=== PATIENT | female | born 1985 | race African-American/Black ===

== ENCOUNTER 2017-04-17 11:01 | Emergency (ER) | payer OTHER ==
[~2017-04-17] VITALS: Ht 172.7 cm; Wt 53.3 kg
[2017-04-17 11:09] VITALS: BP 142/99
[2017-04-17] MEDS ORDERED: NAPR250T45 PO (11:14)
[2017-04-17] MEDS ORDERED: BACT800T5 PO (12:35)
[2017-04-17] MEDS ORDERED: ACET30TAB PO (12:57)
== END 2017-04-17 12:59 | disposition home or self-care (01) ==
LOC: M ED 11:01
DX: N75.0 Cyst of Bartholin's gland (principal); Z91.018 Allergy to other foods; Z79.899 Other long term (current) drug therapy; Z87.42 Personal history of other diseases of the female genital tract

== ENCOUNTER 2017-04-18 20:55 | Emergency (ER) | payer OTHER ==
[~2017-04-18 20:55] MED LIST: ACET30TAB PO; BACT800T5 PO; NAPR250T45 PO
[2017-04-19] MEDS ORDERED: KETOROLAC 30 MG/ML VIAL (J1885) IV ONE (00:45)
[2017-04-19] MEDS ORDERED: methylPREDNISolone INJ 125 MG/2 ML VIAL (J2930) IV ONE (00:45)
[2017-04-19] MEDS ORDERED: KETO10TAB PO (01:36)
[2017-04-19] MEDS ORDERED: PRED20TA PO (01:36)
[2017-04-19 01:46] VITALS: BP 120/70
== END 2017-04-19 02:01 | disposition home or self-care (01) ==
LOC: M ED 20:55
DX: N76.2 Acute vulvitis (principal); N75.1 Abscess of Bartholin's gland; Z91.018 Allergy to other foods; Z79.2 Long term (current) use of antibiotics
CPT/HCPCS: 96374; 96375; 99283; J1885; J2930